=== PATIENT | female | born 2000 | race African-American/Black ===

== ENCOUNTER 2020-08-22 05:13 | Emergency (ER) | payer SELFPAY ==
[~2020-08-22] VITALS: Ht 170.2 cm; Wt 100.0 kg
--- NOTE | 2020-08-22 05:58 | PHYS DOC ---
Past Medical History Past Medical History: Asthma (RADHA LOPES MD) Past Medical History: Asthma (JUAN ECHEVARRIA DO) Past Surgical History: No Surgical History (RADHA LOPES MD) Smoking Status: Never Smoker Alcohol Use: None Drug Use: Marijuana (RADHA LOPES MD) Adult General Chief Complaint Chief Complaint: Congestion HPI HPI Patient is a 20 year old female with a past medical history of asthma presents emergency department for new onset of left anterior chest pain. Patient states that over the last 24 hours has developed a sensation of aching pain over the left anterior chest which radiates into the left back. States that she has been taking her medication because she feels that she is been having some difficulty breathing but denies any cough, fever, chills, nausea or vomiting. Denies any history of chest pain. (RADHA LOPES MD) Review of Systems Review of Systems Constitutional: Denies fever or chills [] Eyes: Denies change in visual acuity, redness, or eye pain [] HENT: Denies nasal congestion or sore throat [] Respiratory: Denies cough or shortness of breath [] Cardiovascular: No additional information not addressed in HPI [] GI: Denies abdominal pain, nausea, vomiting, bloody stools or diarrhea [] : Denies dysuria or hematuria [] Musculoskeletal: Denies back pain or joint pain [] Integument: Denies rash or skin lesions [] Neurologic: Denies headache, focal weakness or sensory changes [] Endocrine: Denies polyuria or polydipsia [] All other systems were reviewed and found to be within normal limits, except as documented in this note. (RADHA LOPES MD) Current Medications Current Medications Current Medications Medications (Trade) Dose Ordered Sig/Samra Start Time Stop Time Status Last Admin Dose Admin Ibuprofen (Motrin) 800 mg 1X ONCE 08/22/20 06:30 08/22/20 06:31 DC (JUAN ECHEVARRIA DO) Allergies Allergies Allergies Coded Allergies Type Severity Reaction Last Updated Verified No Known Drug Allergies 09/25/13 No (JUAN ECHEVARRIA DO) Physical Exam Physical Exam Constitutional: Well developed, well nourished, no acute distress, non-toxic appearance. [] HENT: Normocephalic, atraumatic, bilateral external ears normal, oropharynx moist, no oral exudates, nose normal. [] Eyes: PERRLA, EOMI, conjunctiva normal, no discharge. [] Neck: Normal range of motion, no tenderness, supple, no stridor. [] Cardiovascular:Heart rate regular rhythm, no murmur [] Lungs & Thorax: Bilateral breath sounds clear to auscultation [] Abdomen: Bowel sounds normal, soft, no tenderness, no masses, no pulsatile mass es. [] Skin: Warm, dry, no erythema, no rash. [] Back: No tenderness, no CVA tenderness. [] Extremities: No tenderness, no cyanosis, no clubbing, ROM intact, no edema. [] Neurologic: Alert and oriented X 3, normal motor function, normal sensory function, no focal deficits noted. [] Psychologic: Affect normal, judgement normal, mood normal. [] (RADHA LOPES MD) Current Patient Data Lab Values Laboratory Tests Test 08/22/20 05:43 POC Urine HCG, Qualitative Hcg negative (Negative) (JUAN ECHEVARRIA DO) EKG EKG [] (RADHA LOPES MD) Interpretation Time: EKG was done at 547, heart rate of 87 bpm, normal sinus rhythm, no ST segment elevation, normal axis. (JUAN ECHEVARRIA DO) Radiology/Procedures Radiology/Procedures [] (RADHA OLPES MD) Radiology/Procedures [facility] [address] [place], [place] [id number] IMAGING REPORT Signed PATIENT: KATHLEEN HERNANDEZ ACCOUNT: [id number] : 2000 LOCATION: ER AGE: 20 SEX: F EXAM STATUS: REG ER ORD. PHYSICIAN: RADHA LOPES MD REASON: COUGH PROCEDURE: CHEST AP ONLY AP portable chest radiograph 08/22/2020 Clinical History: Cough. An AP erect portable digital radiograph of the chest was obtained. No previous studies are available for comparison. The cardiac and mediastinal s ilhouettes are within normal limits in size and configuration. No acute pulmonary infiltrate is seen. No pleural effusion or pneumothorax is noted. The osseous structures are grossly intact. IMPRESSION: No acute abnormality is seen. Electronically signed by: Nando Malik MD (08/22/2020 6:13 AM) [id number] DICTATED and SIGNED BY: NANDO MALIK MD DATE: 08/22/20 [id number] (JUAN ECHEVARRIA DO) Course & Med Decision Making Course & Med Decision Making Pertinent Labs and Imaging studies reviewed. (See chart for details) Well-appearing 20-year-old female now presenting emergency department complaint of left anterior chest pain. Patient does not take any control and she is PERC negative. No significant wheezing on exam to raise concern for acute asthma exacerbation. At this time will obtain an EKG and a chest x-ray (RADHA LOPES MD) Course & Med Decision Making Patient says she ran out of albuterol nebulizer solution for home nebulizer machine (JUAN ECHEVARRIA DO) Dragon Disclaimer Dragon Disclaimer This electronic medical record was generated, in whole or in part, using a voice recognition dictation system. (RADHA LOPES MD) Departure Departure Impression: Primary Impression: URI (upper respiratory infection) Additional Impression: Medication refill Disposition: 01 DC HOME SELF CARE/HOMELESS Condition: STABLE Referrals: NO PCP (PCP) follow up with your PCP as needed Patient Instructions: Upper Respiratory Infection, Adult Additional Instructions: Thank you for visiting our Emergency Department. We appreciate you trusting us with your care. If any additional problems come up don't hesitate to return to visit us. Please follow up with your primary care provider so they can plan additional care if needed and know about the problem that you had. If symptoms worsen come back to the Emergency Department. Any concerning symptoms that start such as chest pain, shortness of air, weakness or numbness on one side of the body, running high fevers or any other concerning symptoms return to the ER. Scripts Albuterol Sulfate (ALBUTEROL SULFATE CONC NEB SOLN) 2.5 Mg/0.5 Ml Vial.neb 1 VIAL NEB Q6HRS PRN for WHEEZING for 30 Days, #120 VIAL 5 Refills Prov: JUAN ECHEVARRIA DO 08/22/20 Problem Qualifiers RADHA LOPES MD Aug 22, 2020 05:58 JUAN ECHEVARRIA DO Aug 22, 2020 07:08
--- NOTE | 2020-08-22 06:16 | RAD ---
AP portable chest radiograph 08/22/2020 Clinical History: Cough. An AP erect portable digital radiograph of the chest was obtained. No previous studies are available for comparison. The cardiac and mediastinal silhouettes are within normal limits in size and configuration. No acute pulmonary infiltrate is seen. No pleural effusion o r pneumothorax is noted. The osseous structures are grossly intact. IMPRESSION: No acute abnormality is seen. Electronically signed by: Nando Malik MD (08/22/2020 6:13 AM) [id number]
[2020-08-22] MEDS ORDERED: IBUPROFEN 400 MG TABLET. PO ONE (06:30)
[2020-08-22 07:00] VITALS: BP 131/79
[2020-08-22] MEDS ORDERED: ALBU2.5V14 NEB (07:08)
--- NOTE | 2020-08-22 08:59 | EKG ---
[facility] [address] [place] [id number] Test Date: 2020-08-22 Test Time: 05:45:43 Pat Name: KATHLEEN HERNANDEZ Department: Room: Gender: F [employer]: : 2000 Requested By: RADHA LOPES Order Number: [id number] Reading MD: Measurements Intervals [place] Rate: 87 P: 49 ID: [id number] QRS: 18 QRSD: 74 T: 43 QT: 328 QTc: 400 Interpretive Statements SINUS RHYTHM NORMAL ECG RI6.02 No previous ECG available for comparison
== END 2020-08-22 07:18 | disposition home or self-care (01) ==
LOC: ER 05:13
DX: J06.9 Acute upper respiratory infection, unspecified (principal); R07.89 Other chest pain; R20.2 Paresthesia of skin; J45.909 Unspecified asthma, uncomplicated; F12.90 Cannabis use, unspecified, uncomplicated; Z76.0 Encounter for issue of repeat prescription
CPT/HCPCS: 71045; 81025; 93005; 99283